=== PATIENT | female | born 1935 | race Caucasian/White ===

== ENCOUNTER → 2017-05-04 | Outpatient (CLI) | payer MEDICARE ==
[~2017-05-04] MED LIST: LOSA100T6 PO
== END | disposition home or self-care (01) ==
LOC: CFH 09:18
PROVIDERS: ATTEND Nurse Practitioner
DX: Z12.31 Encounter for screening mammogram for malignant neoplasm of breast (principal)
CPT/HCPCS: 77063; G0202

== ENCOUNTER 2017-10-07 12:17 | Day surgery (SDC) | payer MEDICARE ==
[~2017-10-07] VITALS: Ht 157.5 cm; Wt 60.0 kg
[2017-10-07] MEDS ORDERED: DIME50TA PO (13:06)
[2017-10-07] MEDS ORDERED: LACT1CAP35 PO (13:06)
[2017-10-07] MEDS ORDERED: ACET-1600 PO (13:06)
[2017-10-07 13:07] LABS: MICROSCOPIC INDICATED
[2017-10-07 13:49] LABS: BASOPHILS # (AUTO) 0.01 x10^3/uL (0-0.1); BASOPHILS % (AUTO) 0 % (0-1); EOSINOPHILS # (AUTO) 0.02 x10^3/uL (0-0.4); EOSINOPHILS % (AUTO) 0 % (1-7); LYMPHOCYTES # (AUTO) 1.27 x10^3/uL (1-3.4); LYMPHOCYTES % (AUTO) 8 % (22-44); MD NO; MEAN CORPUSCULAR HEMOGLOBIN 29.5 pg (27.0-34.8); MEAN CORPUSCULAR HGB CONC 32.9 g/dL (32.4-35.8); MEAN CORPUSCULAR VOLUME 89.6 fL (80-100); MEAN PLATELET VOLUME 7.8 fL (7.4-10.4); MONOCYTES % (AUTO) 6 % (2-9); NEUTROPHILS # (AUTO) 13.33 x10^3/uL (1.8-6.8); NEUTROPHILS % (AUTO) 85 % (42-75); PLATELET COUNT 291 x10^3/uL (130-400); RED BLOOD COUNT 4.79 x10^6/uL (3.82-5.3); RED CELL DISTRIBUTION WIDTH 14.4 % (9.6-15.2)
[2017-10-07 13:56] LABS: ALANINE AMINOTRANSFERASE 22 U/L (12-78); ALBUMIN 3.7 g/dL (3.4-5.0); ANION GAP 8 mmol/L (5-15); CALCIUM 9.1 mg/dL (8.5-10.1); CHLORIDE 104 mmol/L (98-107); CREATININE 0.89 mg/dL (0.55-1.02)
[2017-10-07 13:58] LABS: ALKALINE PHOSPHATASE 59 U/L (45-117); BILIRUBIN,TOTAL 0.9 mg/dL (0.2-1.0); TOTAL PROTEIN 7.1 g/dL (6.4-8.2)
[2017-10-07] MEDS ORDERED: SODIUM CHLORIDE FLUSH 10ML SYR IVF ONE (14:00)
[2017-10-07] MEDS ORDERED: SODIUM CHLORIDE 0.9% 1,000ML IVBOLUS ONE (14:00)
[2017-10-07] MEDS ORDERED: OMNIPAQUE 350 MG/ML, 100ML BOTTLE ONE (14:48)
[2017-10-07] MEDS ORDERED: CEFOTETAN PMX 1GM/50ML 50 ML IV ONE (15:30)
[2017-10-07] MEDS ORDERED: CEFOTETAN PMX 1GM/50ML 50 ML ONE (15:34)
[2017-10-07] MEDS ORDERED: BUPIVACAINE/PF 0.5% ONE (15:36)
[2017-10-07] MEDS ORDERED: EPINEPHRINE 1 MG/ML, 1ML ONE (15:36)
[2017-10-07] MEDS ORDERED: FENTANYL PF 100 MCG/2ML ONE ×2 (15:43→17:06)
[2017-10-07] MEDS ORDERED: PROPOFOL 10 MG/ML, 20ML ONE (16:15)
[2017-10-07] MEDS ORDERED: ROCURONIUM 10 MG/ML,10ML ONE (16:15)
[2017-10-07] MEDS ORDERED: ONDANSETRON 2MG/ML, 2ML ONE (16:15)
[2017-10-07] MEDS ORDERED: DEXAMETHASONE 4 MG/ML, 1ML ONE (16:15)
[2017-10-07] MEDS ORDERED: ALBUTEROL SULFATE 2.5 MG/3 ML NPPB PRN (17:00)
[2017-10-07] MEDS ORDERED: KETOROLAC 30 MG/1 ML IV PRN (17:00)
[2017-10-07] MEDS ORDERED: PROMETHAZINE 25 MG/ML, 1ML IV PRN (17:00)
[2017-10-07] MEDS ORDERED: ACETAMINOPHEN 325 MG TABLET PO PRN (17:00)
[2017-10-07] MEDS ORDERED: OXYcodone 5 MG/5 ML ORAL.SOL UDC ONE ×2 (17:06→18:03)
[2017-10-07] MEDS ORDERED: ACETAMINOPHEN 650 MG/20.3 ML UDC ONE (17:06)
[2017-10-07] MEDS: FENTANYL PF 100 MCG/2ML IV PRN ×3 (17:10→17:23)
[2017-10-07] MEDS: OXYcodone 5 MG/5 ML ORAL.SOL UDC PO PRN ×2 (17:10→18:00)
[2017-10-07 19:10] VITALS: BP 128/70
[2017-10-07] MEDS ORDERED: MORPHINE SULFATE 4 MG/ML, 1ML IVPush PRN (19:30)
[2017-10-07] MEDS ORDERED: ONDANSETRON 2MG/ML, 2ML IVPush PRN (19:30)
[2017-10-07] MEDS ORDERED: HYDROcodone/APAP 5/325 TABLET PO PRN (19:30)
[2017-10-07] MEDS ORDERED: ONDANSETRON ODT 4 MG PO PRN (19:30)
[2017-10-07] MEDS ORDERED: HYDR-883 PO (19:48)
[2017-10-07 20:50] VITALS: BP 114/73
== END 2017-10-07 21:07 | disposition home or self-care (01) ==
LOC: ED 15:24 → SDC 16:55 → 4NOR 18:25 → ED 18:25 → SDC 21:07 → ED 21:07 → 4NOR 21:07
PROVIDERS: ATTEND Surgery Vascular Surgery
DX: K35.80 Unspecified acute appendicitis (principal); I10 Essential (primary) hypertension; Z88.8 Allergy status to other drugs, medicaments and biological substances
CPT/HCPCS: 36415; 44970; 74177; 80053; 81001; 85025; 88304; 93005; J0171; J1100; J2405; J2704; J3010; J3490; J7030; Q9967; S0074

== ENCOUNTER → 2017-11-19 | Outpatient (CLI) | payer MEDICARE ==
[~2017-11-19] MED LIST changes: +ACET-1600 PO; +DIME50TA PO; +GADOBUTROL 10 MMOL/10 ML VIAL ONE; +HYDR-883 PO; +LACT1CAP35 PO
== END | disposition home or self-care (01) ==
LOC: CFH 12:22
PROVIDERS: ATTEND Internal Medicine Gastroenterology
DX: K86.2 Cyst of pancreas (principal); D12.6 Benign neoplasm of colon, unspecified; K62.89 Other specified diseases of anus and rectum; R15.9 Full incontinence of feces; Z86.010 Personal history of colon polyps
CPT/HCPCS: 74183; A9585

== ENCOUNTER → 2019-06-02 | Outpatient (CLI) | payer MEDICARE ==
[~2019-06-02] MED LIST changes: -GADOBUTROL 10 MMOL/10 ML VIAL ONE; +HYDR-3652 PO; -HYDR-883 PO; +LOSA100T14 PO; -LOSA100T6 PO
== END | disposition home or self-care (01) ==
LOC: CFH 13:25 → EDSTATUS 14:00
PROVIDERS: ATTEND Internal Medicine
DX: Z12.31 Encounter for screening mammogram for malignant neoplasm of breast (principal)
CPT/HCPCS: 76641; 77063; 77067

== ENCOUNTER → 2020-07-05 | Outpatient (CLI) | payer MEDICARE | END | disposition home or self-care (01) | LOC: CFH 10:06 | PROVIDERS: ATTEND Internal Medicine | DX: M85.88 Other specified disorders of bone density and structure, other site (principal); M81.0 Age-related osteoporosis without current pathological fracture | CPT/HCPCS: 77080 ==